=== PATIENT | male | born 1975 | race Caucasian/White ===

== ENCOUNTER 2019-11-03 15:08 | Inpatient (IN) | payer SELFPAY ==
[~2019-11-03] VITALS: Ht 177.8 cm; Wt 62.5 kg
[2019-11-03] MEDS ORDERED: MULTIVIT INFUSN,ADULT 4,VIT K 10 ML, THIAMINE INJ 100 MG, FOLIC ACID INJ 1 MG in IV NOR... IV ONE (16:15)
[2019-11-03 16:20] LABS: BASO # 0.1 x10^3/uL (0.0-0.2); BASO % 2 % (0-3); EOS % 0 % (0-3); HEMATOCRIT 40.7 % (39.0-53.0); LYMPH # 1.3 x10^3/uL (1.0-4.8); LYMPH % 37 % (24-48); MEAN CORPUSCULAR HEMOGLOBIN 32 pg (25-35); MEAN CORPUSCULAR HGB CONC 34 g/dL (31-37); MEAN CORPUSCULAR VOLUME 92 fL (79-100); MONO # 0.4 x10^3/uL (0.0-1.1); MONO % 13 % (0-9); NEUT # 1.6 x10^3/uL (1.8-7.7); NEUT % 48 % (31-73); PLATELET COUNT 58 x10^3/uL (140-400); RED BLOOD COUNT 4.43 x10^6/uL (4.30-5.70); RED CELL DISTRIBUTION WIDTH 15.6 % (11.5-14.5); WHITE BLOOD COUNT 3.4 x10^3/uL (4.0-11.0)
[2019-11-03 16:27] LABS: CALCIUM 7.9 mg/dL (8.5-10.1); CREATININE 1.1 mg/dL (0.7-1.3); GFR 72.7
[2019-11-03 16:34] LABS: ALBUMIN 3.2 g/dL (3.4-5.0); ALBUMIN/GLOBULIN RATIO 0.7 (1.0-1.7); MAGNESIUM 1.5 mg/dL (1.8-2.4); PROTHROMBIN TIME PATIENT 12.3 SEC (11.7-14.0); TOTAL BILIRUBIN 0.6 mg/dL (0.2-1.0); TOTAL PROTEIN 7.7 g/dL (6.4-8.2)
[2019-11-03 16:36] LABS: BILIRUBIN,URINE SMALL (NEG); CLARITY,URINE CLEAR; COLOR,URINE AMBER; NITRITE,URINE POSITIVE (NEG); PH,URINE 6.5 (<5.0-8.0); PROTEIN,URINE >=300 mg/dL (NEG-TRACE)
[2019-11-03 16:41] LABS: PLT ESTIMATE DECREASED (ADEQUATE)
--- NOTE | 2019-11-03 16:41 | PHYS DOC ---
Past Medical History Past Medical History: Other Additional Past Medical Histor: ETOH ABUSE Past Surgical History: No Surgical History Smoking Status: Never Smoker Alcohol Use: Heavy Additional Information: DRINKS 3 TO 4, 1/5'S DAILY, LAST DRINK APPROXIMATELY 1 HOUR COTA. General Adult EDM: Chief Complaint: WITHDRAWL HPI: HPI: Patient is a 44-year-old white male who presents acutely intoxicated. Patient states that he drinks approximately 3 handles per day of liquor. Patient has drank off and on since the age of 17. Today he is present with his girlfriend who encouraged him to present to the ED for detox. Patient states he would like to quit drinking. He does have occasional mild epigastric abdominal pain that radiates to his back, however this pain is not present today. He does have regular BMs however they are usually orange in color and very thin do not have much mass, however they are solid. Patient does report mild numbness and tingling in his feet bilaterally that have been going on for the last year and a half. He does not have any difficulty formulating sentences. Patient denies any hematemesis hematochezia or melena. Patient regularly vomits every morning, this vomitus typically bilious. Patient is very pleasant and noncombative. Patient's girlfriend was interviewed separately. Notably she does have a black eye, she reports getting this black eye on a fall denies any domestic disturbances between the 2. Past medical history: Hypertension Surgical history none Review of Systems: Review of Systems: Constitutional: Denies fever or chills Eyes: Denies redness or eye pain HENT: Denies nasal congestion or sore throat Respiratory: Denies cough or shortness of breath Cardiovascular: Denies chest pain or palpitations GI: Patient reports regular nausea and vomiting. : Denies dysuria or hematuria Musculoskeletal: Denies back pain or joint pain Integument: Denies rash or skin lesions Neurologic: Denies headache, focal weakness or sensory changes, patient reports peripheral neuropathy Complete systems were reviewed and found to be within normal limits, except as documented in this note. Current Medications: Current Medications Medications (Trade) Dose Ordered Sig/Daniel Start Time Stop Time Status Last Admin Dose Admin Multivitamins 10 ml/Thiamine HCl 100 mg/Folic Acid 1 mg/Sodium Chloride 1,011.2 ml @ 1,000.088 mls/hr 1X ONCE 11/03/19 16:15 11/03/19 17:15 Allergies: Allergies: Allergies Coded Allergies Type Severity Reaction Last Updated Verified No Known Drug Allergies 11/03/19 No Physical Exam: PE: Constitutional: Well developed, well nourished, no acute distress, non-toxic appearance HENT: Normocephalic, atraumatic, cranial nerves II through XII grossly intact bilaterally. Eyes: PERRL, EOMI, conjunctiva normal, no discharge. Pupils dilated. Neck: Normal range of motion, no tenderness, supple no carotid bruits Lungs & Thorax: Bilateral breath sounds clear to auscultation, no wheezing Abdomen: Soft, no tenderness bowel sounds present all 4 quadrants. Mild ep igastric tenderness to palpation. negative rebound. negative heel strike. Heart: Regular rate and rhythm 1+/6 diastolic murmur best heard at left sternal border. S1 and S2 normal. S3 and S4 not heard. Skin: Warm, dry, no erythema, no rash Back: No tenderness, no CVA tenderness Extremities: No tenderness, ROM intact, no edema 2+4 pulses in all 4 extremities. Decreased sensation to light touch over the toes of the right foot and fourth and fifth digits of the left foot. Neurologic: Alert and oriented X 3, normal motor function, normal sensory function, no focal deficits noted Psychologic: Affect normal, judgment normal. Patient is clearly intoxicated. Current Patient Data: Vital Signs: Vital Signs Date Time Temp Pulse Resp B/P (MAP) Pulse Ox O2 Delivery O2 Flow Rate FiO2 11/03/19 15:43 98.5 109 19 166/109 (128) 95 Room Air 98.5 EKG: EK11-03-2019 at 16:50 DE: 136 ms QRS: 100 ms QT: 36 6 ms QTC: 446 ms Impression: normal sinus rhythm. Radiology/Procedures: Radiology/Procedures: [] Course & Med Decision Making: Course & Med Decision Making Patient amicable to rehab. Patient has been counseled on a potential rehab course and would like enrollment. Diagnosis: Alcoholism. Admit for acute detoxification. Thiamine and lactated Ringer's. DT withdraw treatment with lorazepam. Plan for outpatient placement for rehab and detox. Taryn Disclaimer: Taryn Disclaimer: This electronic medical record was generated, in whole or in part, using a voice recognition dictation system. Departure Departure Impression: Primary Impression: Alcohol intoxication in alcoholism with blood level over 0.3 with complication Additional Impressions: Hypokalemia Urinary tract infection Qualified Codes: N30.00 - Acute cystitis without hematuria Hypomagnesemia Elevated LFTs Disposition: ADMITTED INPATIENT Admitting Physician: AILEEN Britton) Condition: STABLE Justicifation of Admission Dx: Justifications for Admission: Justification of Admission Dx: Yes Comments: Alcohol toxicity, hypokalemia, hepatitis, impending withdrawals, UTI CHRISS BORJAS DO Nov 03, 2019 16:41
[2019-11-03 16:43] LABS: BARBITURATES NEG (NEG); BENZODIAZEPINES NEG (NEG); CANNABINOIDS POS (NEG); COCAINE NEG (NEG); METHADONE NEG (NEG); OPIATES NEG (NEG); PHENCYCLIDINE NEG (NEG)
[2019-11-03 16:45] LABS: WBC,URINE >40 /HPF (0-4)
[2019-11-03 16:47] LABS: BACTERIA,URINE 0 /HPF (0-FEW)
[2019-11-03 16:48] LABS: AMORPHOUS SEDIMENT,UR PRESENT /HPF; HYALINE CASTS, URINE FEW /HPF
[2019-11-03 16:51] LABS: AMPHETAMINE/METHAMPHETAMINE NEG (NEG)
[2019-11-03] MEDS ORDERED: cefTRIAXone IV Push 1 GM VIAL. IVP ONE (17:15)
[2019-11-03] MEDS: IV NORMAL SALINE 1000ML BAG 1,000 ML IV SCH (18:40)
[2019-11-03] MEDS ORDERED: ONDANSETRON PF 4 MG/2 ML VIAL. IV PRN (18:45)
--- NOTE | 2019-11-03 19:03 | HP ---
ADMIT DATE: 11/03/2019 CHIEF COMPLAINT: Alcohol withdrawal. HISTORY OF PRESENT ILLNESS: The patient is a pleasant middle-aged male who drinks 3 liters of vodka a day. He is basically in severe alcohol withdrawal. While in the ER, we also noted he has UTI. His alcohol level was 448. Rates his symptoms at 9/10. He has associated weakness, has been occurring for several days. He wants to get off the alcohol. I discussed the case with ER physician. We are going to admit the patient, give him alcohol withdrawal protocol and IV antibiotics. PAST MEDICAL HISTORY: Severe alcoholism. ALLERGIES: None. FAMILY HISTORY: Diabetes. SOCIAL HISTORY: He drinks very heavily about 3 liters of vodka a day. His last drink was 1 hour prior to arrival. 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 He has a girlfriend that is present. She seems to be a good support for him. MEDICATIONS: Reviewed, please refer to the MRAD. REVIEW OF SYSTEMS: GENERAL: No history of weight change, weakness or fevers. SKIN: No bruising, hair changes or rashes. EYES: No blurred, double or loss of vision. NOSE AND THROAT: No history of nosebleeds, hoarseness or sore throat. HEART: No history of palpitations, chest pain or shortness of breath on exertion. LUNGS: Denies cough, hemoptysis, wheezing or shortness of breath. GASTROINTESTINAL: Denies changes in appetite, nausea, vomiting, diarrhea or constipation. GENITOURINARY: No history of frequency, urgency, hesitancy or nocturia. NEUROLOGIC: He complains of shaking. PSYCHIATRIC: He complain of depression. ENDOCRINE: No history of heat or cold intolerance, polyuria or polydipsia. EXTREMITIES: Denies muscle weakness, joint pain, pain on walking or stiffness. PHYSICAL EXAMINATION: VITALS: Within normal limits and are stable. GENERAL: No apparent distress. Alert and oriented. HEENT: Normal cephalic atraumatic, external auditory canals are patent EYES: Extraocular muscles are intact, pupils are equally round and reactive to light and accommodation MUSCULOSKELETAL: Well developed, well nourished, good range of motion ENDOCRINE: No thyromegaly was palpated LYMPHATICS: No cervical chain or axillary nodes were noted HEMATOPOIETIC: No bruising NECK: Supple, no JVD, no thyromegaly was noted. LUNGS: Clear to auscultation in all lung yuan without rhonchi or wheezing. HEART: RRR, S1, S2 present. Peripheral pulses intact, no obvious murmurs were noted. ABDOMEN: Soft, nontender. Positive bowel sounds no organomegaly, normal bowel sounds. EXTREMITIES: Without any cyanosis, clubbing, or edema. Pedal pulses intact, Homans sign is negative. NEUROLOGIC: He is shaking. PSYCHIATRIC: Normal affect, normal mood. Stable. SKIN: No ulcerations or rashes, good skin turgor, no jaundice. VASCULAR: Good capillary refill, neurovascular bundle appears to be intact. ASSESSMENT AND PLAN: Severe alcohol withdrawal and urinary tract infection. The patient will be admitted. We will give him alcohol withdrawal protocol, IV antibiotics, home meds, DVT prophylaxis. Full code. 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 LYNNE GARNER DO DR: FLOR/zeb JOB#: [id number] / [id number]
[2019-11-03] MEDS ORDERED: MAGNESIUM SULFATE 2GM 50 ML IV ONE (19:30)
[2019-11-03] MEDS ORDERED: POTASSIUM CHLORIDE 20 MEQ TABLET.ER. PO ONE (19:30)
--- NOTE | 2019-11-03 20:30 | NUR ---
Pt was admitted to the unit from ER with etoh withdrawl, uti and hepatitis. Pt is A/Ox4, on RA, up adlib and tolerating well. Pt states taking no home medications currently, but did take lisinopril in the past. Pt states drinking 3L of vodka daily, and came to the hospital for help. Pt was seen by Dr. Gustafson in the ER, orders received, VSS, pt is SR on the monitor, call light within reach, bed in low/locked position. Will continue to monitor for status changes.
[2019-11-03 20:32] VITALS: BP 124/80
[2019-11-03 23:00] VITALS: BP 130/80
[2019-11-04] VITALS (7 sets, daily range): BP systolic 140–162; BP diastolic 74–118
[2019-11-04] MEDS: IV NORMAL SALINE 1000ML BAG 1,000 ML IV SCH ×2 (04:40→14:39)
[2019-11-04] MEDS ORDERED: POTASSIUM CHLORIDE 20 MEQ TABLET.ER. PO ONE (08:30)
[2019-11-04] MEDS: MULTIVITAMIN with MINERAL TABLET. PO SCH (09:05)
[2019-11-04] MEDS: THIAMINE 100 MG TABLET. PO SCH (09:06)
[2019-11-04 09:15] LABS: BASO % 1 % (0-3); EOS % 0 % (0-3); HEMATOCRIT 36.5 % (39.0-53.0); HEMOGLOBIN 12.4 g/dL (13.0-17.5); LYMPH # 0.9 x10^3/uL (1.0-4.8); LYMPH % 26 % (24-48); MEAN CORPUSCULAR HEMOGLOBIN 31 pg (25-35); MEAN CORPUSCULAR HGB CONC 34 g/dL (31-37); MEAN CORPUSCULAR VOLUME 92 fL (79-100); MONO # 0.4 x10^3/uL (0.0-1.1); MONO % 11 % (0-9); NEUT # 2.2 x10^3/uL (1.8-7.7); NEUT % 62 % (31-73); PLATELET COUNT 44 x10^3/uL (140-400); RED BLOOD COUNT 3.96 x10^6/uL (4.30-5.70); RED CELL DISTRIBUTION WIDTH 15.6 % (11.5-14.5); WHITE BLOOD COUNT 3.5 x10^3/uL (4.0-11.0)
[2019-11-04 09:25] LABS: CALCIUM 8.3 mg/dL (8.5-10.1); GFR 81.2; POTASSIUM 3.3 mmol/L (3.5-5.1)
[2019-11-04 10:27] LABS: PLT ESTIMATE DECREASED (ADEQUATE)
[2019-11-04] MEDS ORDERED: KETOROLAC 30 MG/ML VIAL. IV PRN (11:45)
[2019-11-04] MEDS: cloNIDine HCL 0.1 MG TABLET PO PRN ×2 (11:59→16:27)
--- NOTE | 2019-11-04 14:33 | PDOC ---
[facility] PROGRESS NOTE Date of Service DOS: DATE: 11/04/19 TIME: 14:29 Chief Complaint Chief Complaint Alcohol withdrawal History of Present Illness History of Present Illness Patient examined, resting comfortably in bed. Denies any abdominal pain, nausea, or vomiting. States he is noticeably tremulous, and his last drink was 1 day ago. He denies any history of withdrawal seizures. He denies any dysuria but does note urinary frequency. Vitals/I&O Vitals/I&O: Vital Signs Date Time Temp Pulse Resp B/P (MAP) Pulse Ox O2 Delivery O2 Flow Rate FiO2 11/04/19 13:27 98 160/98 (118) 11/04/19 11:00 98.4 20 95 Room Air 98.4 11/03/19 20:32 2.0 I & O 11/03/19 11/03/19 11/04/19 15:00 23:00 07:00 Intake Total 1011.2 ml 1800 ml Balance 1011.2 ml 1800 ml Physical Exam General: Alert, No acute distress Heart: Regular rate Lungs: Clear Abdomen: Normal bowel sounds, No tenderness Extremities: No clubbing, No edema Skin: No rashes Labs Labs: Laboratory Tests Test 11/03/19 16:13 11/03/19 16:25 11/04/19 09:00 White Blood Count 3.4 x10^3/uL (4.0-11.0) 3.5 x10^3/uL (4.0-11.0) Red Blood Count 4.43 x10^6/uL (4.30-5.70) 3.96 x10^6/uL (4.30-5.70) Hemoglobin 14.0 g/dL (13.0-17.5) 12.4 g/dL (13.0-17.5) Hematocrit 40.7 % (39.0-53.0) 36.5 % (39.0-53.0) Mean Corpuscular Volume 92 fL (79-100) 92 fL (79-100) Mean Corpuscular Hemoglobin 32 pg (25-35) 31 pg (25-35) Mean Corpuscular Hemoglobin Concent 34 g/dL (31-37) 34 g/dL (31-37) Red Cell Distribution Width 15.6 % (11.5-14.5) 15.6 % (11.5-14.5) Platelet Count 58 x10^3/uL (140-400) 44 x10^3/uL (140-400) Neutrophils (%) (Auto) 48 % (31-73) 62 % (31-73) Lymphocytes (%) (Auto) 37 % (24-48) 26 % (24-48) Monocytes (%) (Auto) 13 % (0-9) 11 % (0-9) Eosinophils (%) (Auto) 0 % (0-3) 0 % (0-3) Basophils (%) (Auto) 2 % (0-3) 1 % (0-3) Neutrophils # (Auto) 1.6 x10^3/uL (1.8-7.7) 2.2 x10^3/uL (1.8-7.7) Lymphocytes # (Auto) 1.3 x10^3/uL (1.0-4.8) 0.9 x10^3/uL (1.0-4.8) Monocytes # (Auto) 0.4 x10^3/uL (0.0-1.1) 0.4 x10^3/uL (0.0-1.1) Eosinophils # (Auto) 0.0 x10^3/uL (0.0-0.7) 0.0 x10^3/uL (0.0-0.7) Basophils # (Auto) 0.1 x10^3/uL (0.0-0.2) 0.0 x10^3/uL (0.0-0.2) Platelet Estimate Decreased (ADEQUATE) Decreased (ADEQUATE) Prothrombin Time 12.3 SEC (11.7-14.0) Prothromb Time International Ratio 1.0 (0.8-1.1) Activated Partial Thromboplast Time 30 SEC (24-38) Sodium Level 141 mmol/L (136-145) 141 mmol/L (136-145) Potassium Level 3.0 mmol/L (3.5-5.1) 3.3 mmol/L (3.5-5.1) Chloride Level 100 mmol/L (98-107) 101 mmol/L (98-107) Carbon Dioxide Level 29 mmol/L (21-32) 27 mmol/L (21-32) Anion Gap 12 (6-14) 13 (6-14) Blood Urea Nitrogen 7 mg/dL (8-26) 7 mg/dL (8-26) Creatinine 1.1 mg/dL (0.7-1.3) 1.0 mg/dL (0.7-1.3) Estimated GFR (Cockcroft-Gault) 72.7 81.2 BUN/Creatinine Ratio 6 (6-20) Glucose Level 114 mg/dL (70-99) 75 mg/dL (70-99) Calcium Level 7.9 mg/dL (8.5-10.1) 8.3 mg/dL (8.5-10.1) Magnesium Level 1.5 mg/dL (1.8-2.4) 1.4 mg/dL (1.8-2.4) Total Bilirubin 0.6 mg/dL (0.2-1.0) Aspartate Amino Transf (AST/SGOT) 370 U/L (15-37) Alanine Aminotransferase (ALT/SGPT) 202 U/L (16-63) Alkaline Phosphatase 178 U/L (46-116) Creatine Kinase 463 U/L (39-308) Total Protein 7.7 g/dL (6.4-8.2) Albumin 3.2 g/dL (3.4-5.0) Albumin/Globulin Ratio 0.7 (1.0-1.7) Lipase 687 U/L (73-393) 689 U/L (73-393) Ethyl Alcohol Level 448 mg/dL (0-10) Urine Collection Type Void Urine Color [place] Urine Clarity Clear Urine pH 6.5 (<5.0-8.0) Urine Specific [place] 1.020 (1.000-1.030) Urine Protein >=300 mg/dL (NEG-TRACE) Urine Glucose (UA) Negative mg/dL (NEG) Urine Ketones (Stick) Trace mg/dL (NEG) Urine Blood Moderate (NEG) Urine Nitrite Positive (NEG) Urine Bilirubin Small (NEG) Urine Urobilinogen Dipstick 1.0 mg/dL (0.2 mg/dL) Urine Leukocyte Esterase Small (NEG) Urine RBC 6-10 /HPF (0-2) Urine WBC >40 /HPF (0-4) Urine Squamous Epithelial Cells None /LPF Urine Amorphous Sediment Present /HPF Urine Bacteria 0 /HPF (0-FEW) Urine Hyaline Casts Few /HPF Urine Mucus Mod /LPF Urine Opiates Screen Neg (NEG) Urine Methadone Screen Neg (NEG) Urine Barbiturates Neg (NEG) Urine Phencyclidine Screen Neg (NEG) Urine Amphetamine/Methamphetamine Neg (NEG) Urine Benzodiazepines Screen Neg (NEG) Urine Cocaine Screen Neg (NEG) Urine Cannabinoids Screen Pos (NEG) Urine Ethyl Alcohol Pos (NEG) Review of Systems Review of Systems: Denies abdominal pain, denies nausea, denies vomiting, denies fever. Assessment and Plan Assessmemt and Plan Problems Medical Problems: (1) Alcohol intoxication in alcoholism with blood level over 0.3 with complication Status: Acute (2) Elevated LFTs Status: Acute (3) Hypokalemia Status: Acute (4) Hypomagnesemia Status: Acute (5) Urinary tract infection Status: Acute Plan: We will treat UTI with Levaquin 500 mg p.o. for 7 days due to symptoms of urinary frequency. Patient is very tremulous and still within window of alcohol withdrawal seizure. CIWA protocol, daily thiamine, daily folic acid, and Ativan as needed. Comment Review of Relevant I have reviewed the following items cachorro (where applicable) has been applied. Medications: Current Medications Medications (Trade) Dose Ordered Sig/Daniel Route PRN Reason Start Time Stop Time Status Last Admin Dose Admin Multivitamins 10 ml/Thiamine HCl 100 mg/Folic Acid 1 mg/Sodium Chloride 1,011.2 ml @ 1,000.088 mls/hr 1X ONCE IV 11/03/19 16:15 11/03/19 17:15 DC 11/03/19 16:27 Ceftriaxone Sodium (Rocephin) 1 gm 1X ONCE IVP 11/03/19 17:15 11/03/19 17:18 DC 11/03/19 17:30 Lorazepam (Ativan Inj) 1 mg 1X ONCE IVP 11/03/19 18:15 11/03/19 18:16 DC 11/03/19 17:37 Magnesium Sulfate 50 ml @ 25 mls/hr 1X ONCE IV 11/03/19 19:30 11/03/19 21:29 DC 11/03/19 19:25 Potassium Chloride (Klor-Con) 40 meq 1X ONCE PO 11/03/19 19:30 11/03/19 19:31 DC 11/03/19 19:25 Lorazepam (Ativan Inj) 1 mg PRN Q1HR PRN IV For CIWA 8-14 11/03/19 18:45 11/04/19 11:59 Lorazepam (Ativan Inj) 2 mg PRN Q1HR PRN IV For CIWA 15 or greater 11/03/19 18:45 11/04/19 03:42 Potassium Chloride (Klor-Con) 20 meq 1X ONCE PO 11/04/19 08:30 11/04/19 08:31 DC 11/04/19 09:06 Clonidine HCl (Catapres) 0.1 mg PRN Q1HR PRN PO SBP > 180 or DBP > 100, MRX3 11/04/19 11:30 11/04/19 11:59 Multivitamins (Thera M Plus) 1 tab DAILY PO 11/04/19 09:00 11/04/19 09:05 Thiamine Mononitrate (Vitamin B-1) 100 mg DAILY PO 11/04/19 09:00 11/04/19 09:06 Ketorolac Tromethamine (Toradol 30mg Vial) 30 mg 1X PRN IV PAIN 11/04/19 11:45 11/09/19 11:44 11/04/19 11:59 Justifications for Admission Other Justification ABBI MARTINEZ MD Nov 04, 2019 14:33
[2019-11-04] MEDS ORDERED: DEXTROSE 50% 25 GM / 50ML DISP.SYRIN. IV PRN (21:15)
[2019-11-05] MEDS: IV NORMAL SALINE 1000ML BAG 1,000 ML IV SCH ×3 (00:09→20:00)
[2019-11-05 02:42] VITALS: BP 163/116
[2019-11-05 05:49] LABS: BASO % 1 % (0-3); EOS % 0 % (0-3); HEMATOCRIT 38.4 % (39.0-53.0); HEMOGLOBIN 13.1 g/dL (13.0-17.5); LYMPH # 0.8 x10^3/uL (1.0-4.8); LYMPH % 19 % (24-48); MEAN CORPUSCULAR HEMOGLOBIN 32 pg (25-35); MEAN CORPUSCULAR HGB CONC 34 g/dL (31-37); MEAN CORPUSCULAR VOLUME 93 fL (79-100); MONO # 0.4 x10^3/uL (0.0-1.1); MONO % 10 % (0-9); NEUT # 3.2 x10^3/uL (1.8-7.7); NEUT % 71 % (31-73); PLATELET COUNT 52 x10^3/uL (140-400); RED BLOOD COUNT 4.14 x10^6/uL (4.30-5.70); RED CELL DISTRIBUTION WIDTH 15.1 % (11.5-14.5); WHITE BLOOD COUNT 4.6 x10^3/uL (4.0-11.0)
[2019-11-05 05:59] LABS: CALCIUM 8.9 mg/dL (8.5-10.1); CREATININE 1.1 mg/dL (0.7-1.3); GFR 72.7
[2019-11-05 07:00] VITALS: BP 160/107
[2019-11-05] MEDS ORDERED: POTASSIUM CHLORIDE 20 MEQ TABLET.ER. PO PRN (07:45)
[2019-11-05] MEDS ORDERED: POTASSIUM CHLORIDE 10MEQ 100 ML IV PRN ×2 (07:45)
[2019-11-05] MEDS ORDERED: MAGNESIUM SULFATE 2GM 50 ML IV PRN (07:45)
[2019-11-05] MEDS: THIAMINE 100 MG TABLET. PO SCH (09:07)
[2019-11-05] MEDS: MULTIVITAMIN with MINERAL TABLET. PO SCH (09:07)
[2019-11-05] MEDS: MAGNESIUM OXIDE 400 MG TABLET PO SCH ×2 (09:07→20:36)
[2019-11-05 11:00] VITALS: BP 170/118
--- NOTE | 2019-11-05 11:38 | PDOC ---
[facility] PROGRESS NOTE Date of Service DOS: DATE: 11/05/19 TIME: 11:35 Chief Complaint Chief Complaint Alcohol withdrawal Acute electrolyte derangementhypokalemia, hyponatremia Start IV electrolyte replacement protocol IV potassium today Continue with CIWA protocol Lovenox for DVT prophylaxis ADA diet Full code Discussed with RN and SW Disposition inpatient care Surrogate decision maker is the girlfriend History of Present Illness History of Present Illness Patient examined, resting comfortably in bed. Denies any abdominal pain, nausea, or vomiting. States he is noticeably tremulous, and his last drink was 1 day ago. He denies any history of withdrawal seizures. He denies any dysuria but does note urinary frequency. 11/05/2019 No acute events overnight. Patient continues to have tactile agitation and mild tremors. Required about 4 mg of Ativan this morning. CIWA of 12. Patient expresses to leave his room to see his girlfriend up on the fourth floor. Will attempt to arrange with nursing optical instrument assembly supervisor for visitation with other patients. We will continue to observe for withdrawal symptoms and continue with CIWA protocol. Patient's chart, labs, images were reviewed and discussed with RN Vitals/I&O Vitals/I&O: Vital Signs Date Time Temp Pulse Resp B/P (MAP) Pulse Ox O2 Delivery O2 Flow Rate FiO2 11/05/19 11:00 97.4 127 18 170/118 (135) 98 Room Air 97.4 I & O 11/04/19 11/04/19 11/05/19 15:00 23:00 07:00 Intake Total 200 ml 300 ml 200 ml Output Total 200 ml 150 ml Balance 200 ml 100 ml 50 ml Physical Exam Physical Exam: GEN: Minimal distress. Alert and oriented. Disheveled HEENT: Normal cephalic, atraumatic, external auditory canals are patent NECK: Supple, no JVD, no thyromegaly was noted LUNGS: Bilateral crackles HEART: RRR, S1, S2 present. Peripheral pulses intact, no obvious murmurs noted ABDOMEN: Soft, nontender. Positive bowel sounds, no organomegaly, normal bowel sounds EXTREMITIES: Mild tremors General: Alert, No acute distress Heart: Regular rate Lungs: Clear Abdomen: Normal bowel sounds, No tenderness Extremities: No clubbing, No edema Skin: No rashes Labs Labs: Laboratory Tests Test 11/05/19 04:55 White Blood Count 4.6 x10^3/uL (4.0-11.0) Red Blood Count 4.14 x10^6/uL (4.30-5.70) Hemoglobin 13.1 g/dL (13.0-17.5) Hematocrit 38.4 % (39.0-53.0) Mean Corpuscular Volume 93 fL (79-100) Mean Corpuscular Hemoglobin 32 pg (25-35) Mean Corpuscular Hemoglobin Concent 34 g/dL (31-37) Red Cell Distribution Width 15.1 % (11.5-14.5) Platelet Count 52 x10^3/uL (140-400) Neutrophils (%) (Auto) 71 % (31-73) Lymphocytes (%) (Auto) 19 % (24-48) Monocytes (%) (Auto) 10 % (0-9) Eosinophils (%) (Auto) 0 % (0-3) Basophils (%) (Auto) 1 % (0-3) Neutrophils # (Auto) 3.2 x10^3/uL (1.8-7.7) Lymphocytes # (Auto) 0.8 x10^3/uL (1.0-4.8) Monocytes # (Auto) 0.4 x10^3/uL (0.0-1.1) Eosinophils # (Auto) 0.0 x10^3/uL (0.0-0.7) Basophils # (Auto) 0.0 x10^3/uL (0.0-0.2) Sodium Level 134 mmol/L (136-145) Potassium Level 3.0 mmol/L (3.5-5.1) Chloride Level 93 mmol/L (98-107) Carbon Dioxide Level 28 mmol/L (21-32) Anion Gap 13 (6-14) Blood Urea Nitrogen 9 mg/dL (8-26) Creatinine 1.1 mg/dL (0.7-1.3) Estimated GFR (Cockcroft-Gault) 72.7 Glucose Level 99 mg/dL (70-99) Calcium Level 8.9 mg/dL (8.5-10.1) Magnesium Level 1.0 mg/dL (1.8-2.4) Assessment and Plan Assessmemt and Plan Problems Medical Problems: (1) Alcohol intoxication in alcoholism with blood level over 0.3 with complication Status: Acute (2) Elevated LFTs Status: Acute (3) Hypokalemia Status: Acute (4) Hypomagnesemia Status: Acute (5) Urinary tract infection Status: Acute Comment Review of Relevant I have reviewed the following items cachorro (where applicable) has been applied. Medications: Current Medications Medications (Trade) Dose Ordered Sig/Daniel Route PRN Reason Start Time Stop Time Status Last Admin Dose Admin Ketorolac Tromethamine (Toradol 30mg Vial) 30 mg 1X PRN IV PAIN 11/04/19 11:45 11/09/19 11:44 11/04/19 11:59 Sodium Chloride 1,000 ml @ 100 mls/hr Q10H IV 11/04/19 14:00 11/05/19 00:09 Levofloxacin (Levaquin) 500 mg DAILY06 PO 11/04/19 15:00 11/10/19 14:59 11/05/19 05:51 Potassium Chloride (Klor-Con) 40 meq 1X PRN PO PER PROTOCOL 11/05/19 07:45 11/05/19 09:07 Magnesium Oxide (Magnesium Oxide) 400 mg BID PO 11/05/19 09:00 11/06/19 21:01 11/05/19 09:07 Justifications for Admission Other Justification AILIN SINGER MD Nov 05, 2019 11:38
[2019-11-05 15:00] VITALS: BP 190/125
--- NOTE | 2019-11-05 15:43 | NUR ---
At approx 1530 pt decided he was going to leave AMA. Paperwork signed and Dr. Mccray notified. While waiting for security to escort the pt, the pt received a phone call then asked "is it too late to change my mind and stay?". Pt's IV had been removed. Will establish new IV access. Educated pt on need for alcohol withdrawal safety and high BP. Pt had been refusing ativan, educated patient again on the need for medication during withdrawal process. Will continue to monitor pt. Dr. Mccray notified pt is not leaving at this time received orders for BP.
[2019-11-05] MEDS ORDERED: hydrALAZINE 20 MG/ML VIAL. IVP PRN (16:00)
[2019-11-05] MEDS ORDERED: amLODIPine BESYLATE 10 MG TABLET PO SCH (16:00)
[2019-11-05 19:00] VITALS: BP 193/128
--- NOTE | 2019-11-05 19:30 | NUR ---
Patient is currently refusing to wear the hand loom weaver at this time. This RN and Dionicio RN, explained to the patient the need for the nuclear medicine officer but patient continues to refuse. Patient is also refusing to take Ativan for withdrawal symptoms. Education was provided to the patient on the need for the medication, however, patient continues to refuse. Patient states that he just wants to rest and sleep at this time. This RN will attempt to place hand loom weaver on the patient later but will continue to monitor the patient at this time.
--- NOTE | 2019-11-05 20:50 | NUR ---
Patient has decided to leave [facility] at this time, A paperwork has been signed. This RN asked the patient if he had a ride waiting for him outside, patient stated yes. This RN and security took the patient to his car in the outpatient parking lot, patient states that his keys are locked in his car and that he does not intent to drive home. This RN and security then took the patient to the ER waiting room. The patient called a cab at this time. This RN asked security if this RN needed to stay with the patient until he left, security stated that the ER triage nurse, Liliana, could assume care of the patient. Patient left in a 12/07 taxi at 2145.
[2019-11-05] MEDS ORDERED: LACTOBACILLUS RHAMNOSUS GG 1 CAPSULE. PO SCH (21:00)
--- NOTE | 2019-11-06 07:52 | PDOC3 ---
[facility]-Discharge Summary Date of Admission: Date of Admission: Nov 04, 2019 Date of Discharge: Date of Discharge: Nov 05, 2019 Admission Diagnosis: Admitting Diagnosis: Alcohol withdrawal Acute electrolyte derangementhypokalemia, hyponatremia Discharge Diagnosis: Discharge Diagnosis: Alcohol withdrawal Acute electrolyte derangementhypokalemia, hyponatremia Hospital Course: Hospital Course: The patient is a pleasant middle-aged male who drinks 3 liters of vodka a day. He is basically in severe alcohol withdrawal. While in the ER, we also noted he has UTI. His alcohol level was 448. Rates his symptoms at 9/10. He has associated weakness, has been occurring for several days. He wants to get off the alcohol. I discussed the case with ER physician. We are going to admit the patient, give him alcohol withdrawal protocol and IV antibiotics. patient was observed on CIWA protocol. Patient was clinically stable until patient was starting to get agitated because he wanted to see his girlfriend who was also in the hospital. Risk and benefits of alcohol withdrawal were explained to the patient. Patient expressed understanding and decided to leave AMA regardless of the conversation. The rest of the hospital course was uneventful. Disposition: Disposition/Orders: D/C to Home, Other (AGAINST MEDICAL ADVICE) Activity: Activity: Resume previous activity Diet: Diet: Regular Total Time: Total Time: Total time spent was 25 minutes in preparing scripts, discharge planning with SWI and RN and preparing this discharge summary Justicifation of Admission Dx: Justifications for Admission: Justification of Admission Dx: Yes AILIN SINGER MD Nov 06, 2019 07:51
--- NOTE | 2019-11-07 04:32 | EKG ---
[facility] [address] [place] [address] Test Date: 2019-11-03 Test Time: 16:15:38 Pat Name: TY SOLANO Department: Room: Gender: M Charge Attendant: : 1975 Requested By: CHRISS BORJAS Order Number: [id number] Reading MD: Measurements Intervals [place] Rate: 89 P: 233 WI: 136 QRS: 98 QRSD: 100 T: 42 QT: 366 QTc: 446 Interpretive Statements SINUS RHYTHM RIGHTWARD AXIS QRS(T) CONTOUR ABNORMALITY CONSISTENT WITH ANTEROSEPTAL INFARCT AGE UNDETERMINED ABNORMAL ECG RI6.02 No previous ECG available for comparison
== END 2019-11-05 22:22 | disposition left against medical advice (07) | DRG 690 ==
LOC: EDBD 15:08 → ER 15:08 → ED HOLD 17:30 → 2 SOUTH 18:51
PROVIDERS: ADMIT Internal Medicine; ATTEND Internal Medicine
DX: N30.00 Acute cystitis without hematuria (principal); F10.239 Alcohol dependence with withdrawal, unspecified; E87.1 Hypo-osmolality and hyponatremia; E83.42 Hypomagnesemia; E87.6 Hypokalemia; F10.229 Alcohol dependence with intoxication, unspecified; I10 Essential (primary) hypertension; Y90.8 Blood alcohol level of 240 mg/100 ml or more; Z83.3 Family history of diabetes mellitus; Z53.29 Procedure and treatment not carried out because of patient's decision for other reasons
CPT/HCPCS: 36415; 80048; 80053; 80307; 81001; 82550; 83690; 83735; 84132; 85025; 85610; 85730; 87077; 87086; 93005; 96365; 96367; 96375; 99285; G0480; J0696; J1885; J2060; J3411; J3475; J3490; J7030; G0378